=== PATIENT | female | born 1940 | race Caucasian/White ===

== ENCOUNTER → 2019-08-25 11:16 | Outpatient (CLI) | payer MEDICARE ==
[2019-08-25 12:31] LABS: INR 4.33 (0.85-1.17); PROTIME 40.6 SECONDS (11.6-15.0)
[2019-08-25 12:42] LABS: T4 THYROXINE 7.7 ug/dL (4.7-13.3)
[2019-08-25 12:44] LABS: THYROID STIMULATING HORMONE 86.41 uIU/mL (0.36-3.74)
== END | disposition home or self-care (01) ==
LOC: D.LABREF 11:16
PROVIDERS: ATTEND Family Medicine
DX: I48.91 Unspecified atrial fibrillation (principal); Z79.01 Long term (current) use of anticoagulants

== ENCOUNTER → 2019-09-02 17:30 | Outpatient (CLI) | payer MEDICARE ==
[2019-09-02 18:09] LABS: INR 2.91 (0.85-1.17); PROTIME 29.9 SECONDS (11.6-15.0)
== END | disposition home or self-care (01) ==
LOC: D.LABREF 17:30
PROVIDERS: ATTEND Family Medicine
DX: Z79.01 Long term (current) use of anticoagulants (principal)

== ENCOUNTER → 2020-08-25 14:18 | Outpatient (CLI) | payer MEDICARE ==
[2020-08-25 15:08] LABS: INR 2.3 (0.85-1.17); PROTIME 23.5 SECONDS (11.6-15.0)
== END | disposition home or self-care (01) ==
LOC: D.LABREF 14:18
DX: Z79.01 Long term (current) use of anticoagulants (principal)